=== PATIENT | male | born 2005 | race African-American/Black ===

== ENCOUNTER 2023-05-02 22:49 | Emergency (ER) | payer SELFPAY ==
[2023-05-02 22:53] VITALS: BP 167/71; PULSE 92; RESP 16; TEMP 37.2; O2SAT 99
--- NOTE | 2023-05-02 23:16 | ED.GENADUL_ITS ---
Discharge Plan Disposition Patient Disposition: Home Condition: Good Discharge Details Clinical Impression: Pustular eczema ED Provider: Blaze Crowe Home Meds and New Rx's Prescriptions: New hydrocortisone 2.5 % cream 1 applic topical BID PRNQty: 30 0RF cephalexin 500 mg capsule 500 mg PO QID 7 Days Qty: 28 0RF prednisone 50 mg tablet 50 mg PO DAILY Qty: 5 0RF Discharge Instructions Instructions: Eczema (ED) Additional Instructions: At this time your symptoms appear consistent with pustular eczema. Please take the prednisone pill as prescribed. Please apply the hydrocortisone cream in small amounts to the most affected and severe areas. Unfortunately you have also developed a bacterial infection on top of the eczema. Please take the Keflex antibiotic as directed for coverage of this. Please stay well-hydrated and drink plenty of fluids. Continue to use the healing moisturizer as we discussed. If you notice any worsening of your symptoms, or any new symptoms such as vomiting, diarrhea, fever, chills, shortness of breath, chest pain, numbness, weakness, or fainting , please return immediately to the emergency department for reevaluation. Please follow up with your primary care provider as soon as possible for reassessment and reevaluation. As always, it was a pleasure participating in your medical care today. HPI General Date/Time Provider Initiated Documentation: 05/02/23 23:16 . HPI Narrative: This is a very pleasant 17-year-old -Luxembourger male with a past medical history of eczema, who does wrestle in high school, who presents today for rash. Patient states that over the last 48 to 72 hours he has developed a rash on his thighs, arms, and ankles. Yesterday the patient slathered his body with Benadryl cream, bacitracin, neomycin, moisturizer, and Vaseline. This seemed to worsen much of the rash. In addition to this he also developed mild pain and skin sensitivity in the left lower ankle. Lesions have been weeping, they have been slightly itchy. They do p.o. easily. They are small and spread throughout. He also does admit to having unprotected sex 3 days ago. He states that this is the first time he has ever had unprotected sex. He denies any history of STDs, syphilis, genital lesions, pain with urination, or other complaints. No other complaints at this time. No complaint of oral lesions. No headache or neck pain. Patient states that he has had rashes similar to this in the past but not to this severity. Related Data Home Medications Medication Instructions Recorded Confirmed cephalexin 500 mg capsule 500 mg PO QID 7 days #28 caps 05/02/23 hydrocortisone 2.5 % topical cream 1 applic topical BID PRN #30 grams 05/02/23 prednisone 50 mg tablet 50 mg PO DAILY #5 tabs 05/02/23 Previous Rx's Medication Instructions Recorded cephalexin 500 mg capsule 500 mg PO QID 7 days #28 caps 05/02/23 hydrocortisone 2.5 % topical cream 1 applic topical BID PRN #30 grams 05/02/23 prednisone 50 mg tablet 50 mg PO DAILY #5 tabs 05/02/23 General Stated Complaint: Allergic GAVINO: 3 Review of Systems All systems reviewed & are unremarkable except as noted in HPI and below Exam Narrative Exam Narrative: 1.Const: Well-nourished, Well-developed, appearing stated age 2.Eyes: PERRL, no conjunctival injection, and symmetrical lids. 3.ENT: Atraumatic external nose and ears. Moist MM. Neck: Symmetric, trachea midline, No thyromegaly. No oral lesions. 4.CVS: +S1/S2, No murmurs or gallops. Peripheral pulses 2+ and equal in all extremities. Brisk capillary refill in all extremities. 5.RESP: Unlabored respiratory effort. Clear to auscultation bilaterally. No wheezes rales or rhonchi 6.GI: Soft, Nontender/Nondistended, No hepatosplenomegaly. No guarding or rebound. 7.MSK: Normocephalic/Atraumatic, Extremities w/o deformity or ttp No cyanosis or clubbing, Normal movement of all extremities 8.Skin: Warm, Dry. No lesions on the palms of the hands or soles of the feet. Patient does demonstrate evidence of multiple small pustular lesions that have an ulcerated component when the tops are easily peeled off. Each lesion is about 6 mm. Lesions are primarily focused on the anterior medial components of the knees, lateral aspects of the ankles, flexor components of the elbows, and the axillary regions. Few small scattered lesions are noted elsewhere throughout. No genital lesions per patient, however he refused complete genital visual exam by practitioner. Nurse Morgan was at bedside for the entire examination. Negative Nikolsky sign. No large vesicles or bulla. No palpable purpura. No oral lesions. No mucosal lesions. No evidence of severe cellulitis. No e vidence of vaccine preventable rash. 9.Neuro: booth operator II-XII grossly intact. Sensation grossly intact, no focal neurologic deficits. 10.Psych: (AAO) x3. Appropriate mood and affect Course Vital Signs Vital signs: Vital Signs Temperature 37.2 C 05/02/23 22:53 Pulse 92 H 05/02/23 22:53 Respiratory Rate 16 05/02/23 22:53 Blood Pressure 167/71 H 05/02/23 22:53 Pulse Oximetry 99 05/02/23 22:53 Temperature 37.2 C 05/02/23 22:53 Temperature Source Oral 05/02/23 22:53 Pulse 92 H 05/02/23 22:53 Respiratory Rate 16 05/02/23 22:53 Respiratory Effort Normal, Non-Labored 05/02/23 23:04 Respiratory Pattern Normal 05/02/23 23:04 Blood Pressure 167/71 H 05/02/23 22:53 Pulse Oximetry 99 05/02/23 22:53 Oxygen Delivery Method Nasal Cannula 05/02/23 22:53 Oxygen Flow Rate 99 05/02/23 22:53 Pain Level 8 05/02/23 22:53 Medical Decision Making This is a very pleasant 17-year-old -Luxembourger male with a past medical history of eczema, who does wrestle in high school, who presents today for rash. Patient states that over the last 48 to 72 hours he has developed a rash on his thighs, arms, and ankles. Yesterday the patient slathered his body with Benadryl cream, bacitracin, neomycin, moisturizer, and Vaseline. This seemed to worsen much of the rash. In addition to this he also developed mild pain and skin sensitivity in the left lower ankle. Lesions have been weeping, they have been slightly itchy. They do p.o. easily. They are small and spread throughout. He also does admit to having unprotected sex 3 days ago. He states that this is the first time he has ever had unprotected sex. He denies any history of STDs, syphilis, genital lesions, pain with urination, or other complaints. No other complaints at this time. No complaint of oral lesions. No headache or neck pain. Patient states that he has had rashes similar to this in the past but not to this severity. Exam demonstrates No lesions on the palms of the hands or soles of the feet. Patient does demonstrate evidence of multiple small pustular lesions that have an ulcerated component when the tops are easily peeled off. Each lesion is about 6 mm. Lesions are primarily focused on the anterior medial components of the knees, lateral aspects of the ankles, flexor components of the elbows, and the axillary regions. Few small scattered lesions are noted elsewhere throughout. No genital lesions per patient, however he refused complete genital visual exam by practitioner. Nurse Cathy was at bedside for the entire examination. Symptoms appear clinically consistent with pustular eczema. No current clinical evidence of staph scalded skin syndrome, erythema multiforme, erythema migrans, toxic epidermal necrolysis, Alfaro-Gregory syndrome, Kawasaki-like rash, meningococcemia, pemphigus vulgaris, or necrotizing fasciitis. Symptoms appear inconsistent with HSV, disseminated HSV, syphilis/disseminated syphilis or other etiology. He does have evidence of what appears to be a mild superimposed cellulitis over the ankle where some of the lesions have become mildly infected. Will give a prescription of Keflex for this. Will recommend short course of oral steroids as well as some topical hydrocortisone for the most affected areas. Recommend continued moisturization and hydration. Will send for bacterial and viral HSV cultures. I have extensively reviewed the treatment plan and discharge instructions with the patient. I have addressed all patient concerns at this time. The patient was made aware of what symptoms to monitor for that would warrant a return to the emergency department. Discussed the plan with the patient, they demonstrate verbal understanding and agreement with our assessment and plan at this time. The documentation in this chart was dictated using [employer] dictation software. Please excuse any dictation errors. Quality:SDOH Health Related Social Needs: No Data to Display PFSH All Active Problems Pustular eczema (Acute) Social History Smoking/Tobacco Use Status: Current every day Tobacco Type: e-cigarettes Tobacco: How many years used: 3 Smoking risk assessment performed?: Yes Substance use type: marijuana Housing: apartment Do you feel safe at home: Yes Do you feel safe in your relationship?: Yes PAWSS Have you Been Recently Intoxicated or Drunk Within the Last 30 days?: Yes Have you Ever Experienced Previous Episodes of Alcohol Withdrawal?: No Have you ever Experienced Withdrawal Seizures?: No Have you ever Experienced Delirium Tremens(DT)s?: No Have you ever undergone Alcohol Rehabilitation Treatment (i.e, inpt ot outpatient treatment programs)?: No Have you ever Experienced Blackouts?: No Have you ever Combined Alcohol with other Downers within the last 90 days?: No Have you ever Combined Alcohol with any other Substance of Abuse during the last 90 days?: No Positive Blood Alcohol level on Presentation? [PCS.BAL]: No Evidence of Increased Autonomic Activity (i.e. HR>120, tremor, sweating, agitation, nausea)?: No Result: 1
[2023-05-02] MEDS: Cephalexin 500 MG CAP PO (23:24)
[2023-05-02] MEDS: predniSONE 20 MG TAB 60 MG PO (23:25)
[2023-05-04 12:44] LABS: HSV 1 DNA Result Negative (Negative); HSV 2 DNA Result Negative (Negative)
--- NOTE | 2023-05-05 14:58 | W.ED.FU ---
Follow Up Plan: Skin culture resulted +MRSA. Patient was started on keflex. I contacted patient and reviewed results with him. Patient notes inflammation completely resolved at this point. He has no rash. No indication to add additional antibiotics at this time. Patient was advised to follow-up with PCP. He was informed MRSA is contagious.
== END 2023-05-02 23:34 | disposition home or self-care (01) ==
LOC: ER 05-03 00:19
PROVIDERS: Emergency Provider Student in an Organized Health Care Education/Training Program
DX: R21 Rash and other nonspecific skin eruption (principal); L30.3 Infective dermatitis
CPT/HCPCS: 87077; 87529; 99283; 87070; 87186; 87205; J7512